=== PATIENT | female | born 1975 | race African-American/Black ===

== ENCOUNTER 2024-06-06 16:22 | Emergency (ER) | payer MEDICAID, OTHER ==
[~2024-06-06] VITALS: Ht 160 cm; Wt 92.1 kg
[2024-06-06] MEDS ORDERED: HYDROCODONE/APAP 10/325MG TABLET ONE (17:38)
[2024-06-06] MEDS: HYDROCODONE/APAP 10/325MG TABLET PO ONE (17:41)
[2024-06-06] MEDS ORDERED: HYDR-3980 PO (18:19)
[2024-06-06 19:42] VITALS: BP 161/85; TEMP 98.2; O2SAT 98
== END 2024-06-06 19:44 | disposition home or self-care (01) ==
LOC: ER 16:28
DX: G89.29 Other chronic pain (principal); I10 Essential (primary) hypertension; M54.9 Dorsalgia, unspecified